=== PATIENT | female | born 1970 ===

== ENCOUNTER 2019-12-25 18:58 | Emergency (ER) | payer SELFPAY ==
[~2019-12-25] VITALS: Ht 157.5 cm; Wt 90.9 kg
[2019-12-25 19:05] VITALS: Ht 157.5 cm; Wt 90.9 kg
[2019-12-25] MEDS ORDERED: NEURONTIN800 MG PO (19:05)
[2019-12-25] MEDS ORDERED: NALTREXONE HCL50 MG PO (19:06)
[2019-12-25] MEDS ORDERED: NADOLOL20 MG PO (19:06)
[2019-12-25] MEDS ORDERED: METHOCARBAMOL750 MG PO (19:07)
== END 2019-12-25 19:51 | disposition home or self-care (01) ==
LOC: D.ER 18:58
DX: S63.619A Unspecified sprain of unspecified finger, initial encounter (principal); I10 Essential (primary) hypertension; W19.XXXA Unspecified fall, initial encounter; Y93.9 Activity, unspecified; Y92.9 Unspecified place or not applicable